=== PATIENT | female | born 1970 | race Caucasian/White ===

== ENCOUNTER 2016-08-17 13:40 | Emergency (ER) | payer BC ==
[~2016-08-17] VITALS: Ht 157.5 cm; Wt 48.1 kg
[2016-08-17 13:40] VITALS: BP 137/75
[2016-08-17] MEDS ORDERED: ADDE20CA PO ×2 (13:52→15:05)
[2016-08-17] MEDS ORDERED: MULT1CHW39 PO (13:52)
[2016-08-17] MEDS ORDERED: [UNRECOGNIZED DRUG - CODE] PO (13:52)
[2016-08-17] MEDS ORDERED: CLON1TAB PO ×2 (13:52→15:05)
== END 2016-08-17 15:38 | disposition home or self-care (01) ==
LOC: EDBD 13:40 → M ED 14:53
DX: Z76.0 Encounter for issue of repeat prescription (principal); F90.9 Attention-deficit hyperactivity disorder, unspecified type; Z79.899 Other long term (current) drug therapy; Z88.5 Allergy status to narcotic agent